=== PATIENT | female | born 1955 | race Caucasian/White ===

== ENCOUNTER 2017-07-24 19:01 | Emergency (ER) | payer MEDICARE, MEDICAID ==
[~2017-07-24] VITALS: Ht 144.8 cm; Wt 72.3 kg
[~2017-07-24 19:01] MED LIST: ALPR0.257 PO; CALC300T5 PO; CETI10TA32 PO; FAMO20TA7 PO; LURA40TA PO; PHEN50TA4 PO; PRAZ2CAP2 PO
[2017-07-24] MEDS ORDERED: ONDANSETRON ODT 4 MG PO ONE (19:30)
[2017-07-24] MEDS ORDERED: ONDANSETRON ODT 4 MG ONE (19:33)
[2017-07-24 19:44] LABS: ALANINE AMINOTRANSFERASE 26 U/L (12-78); ALBUMIN 3.7 g/dL (3.4-5.0); ANION GAP 6 mmol/L (5-15); CHLORIDE 107 mmol/L (98-107)
[2017-07-24 19:46] LABS: ALKALINE PHOSPHATASE 213 U/L (45-117); BILIRUBIN,TOTAL 0.2 mg/dL (0.2-1.0); TOTAL PROTEIN 7.7 g/dL (6.4-8.2)
[2017-07-24 19:55] LABS: BASOPHILS # (AUTO) 0.06 x10^3/uL (0-0.1); BASOPHILS % (AUTO) 0 % (0-1); EOSINOPHILS # (AUTO) 0.25 x10^3/uL (0-0.4); EOSINOPHILS % (AUTO) 2 % (1-7); LYMPHOCYTES # (AUTO) 3.93 x10^3/uL (1-3.4); LYMPHOCYTES % (AUTO) 30 % (22-44); MD NO; MEAN CORPUSCULAR HEMOGLOBIN 29.7 pg (27.0-34.8); MEAN CORPUSCULAR HGB CONC 33.6 g/dL (32.4-35.8); MEAN CORPUSCULAR VOLUME 88.3 fL (80-100); MEAN PLATELET VOLUME 8.2 fL (7.4-10.4); MONOCYTES # (AUTO) 1.07 x10^3/uL (0.2-0.8); MONOCYTES % (AUTO) 8 % (2-9); NEUTROPHILS # (AUTO) 7.83 x10^3/uL (1.8-6.8); NEUTROPHILS % (AUTO) 60 % (42-75); PLATELET COUNT 257 x10^3/uL (130-400); RED BLOOD COUNT 4.84 x10^6/uL (3.82-5.3); RED CELL DISTRIBUTION WIDTH 12.6 % (9.6-15.2)
[2017-07-24 21:43] VITALS: BP 146/78
== END 2017-07-24 22:16 | disposition home or self-care (01) ==
LOC: ED 20:54
DX: K29.01 Acute gastritis with bleeding (principal); G40.909 Epilepsy, unspecified, not intractable, without status epilepticus
CPT/HCPCS: 36415; 80053; 83690; 85025; 86677; 99284; Q0162

== ENCOUNTER → 2017-09-21 | Outpatient (CLI) | payer MEDICARE, MEDICAID ==
[~2017-09-21] MED LIST changes: +ALPR0.5T6 PO; +ATOR20TA PO; +AZIT500T2 PO; +CHOL10003 PO; +FAMO-79 PO; +HALO0.5T PO; +HALO1TAB PO; +LURA120T PO; +MECL25TA4 PO; +OLOP2.5D EACHEYE; +PRAZ5CAP2 PO; +TRAM100T13 PO; +TRAZ-137 PO; +[UNRECOGNIZED DRUG - OTHER] PO
== END | disposition home or self-care (01) ==
LOC: STAR 11:56
PROVIDERS: ATTEND Internal Medicine Gastroenterology
DX: Z12.11 Encounter for screening for malignant neoplasm of colon (principal); K92.0 Hematemesis; K21.9 Gastro-esophageal reflux disease without esophagitis; G40.909 Epilepsy, unspecified, not intractable, without status epilepticus; F41.9 Anxiety disorder, unspecified; I10 Essential (primary) hypertension; E78.00 Pure hypercholesterolemia, unspecified; K59.00 Constipation, unspecified
CPT/HCPCS: 93005

== ENCOUNTER 2017-09-26 08:50 | Day surgery (SDC) | payer MEDICARE, MEDICAID ==
[~2017-09-26] VITALS: Ht 144.8 cm; Wt 69.3 kg
[2017-09-26] MEDS ORDERED: LACTATED RINGERS 1,000 ML IV SCH (09:21)
[2017-09-26 09:48] VITALS: BP 128/77
[2017-09-26] MEDS ORDERED: PROPOFOL 10 MG/ML, 20ML ONE (10:38)
[2017-09-26] MEDS ORDERED: OXYcodone 5 MG/5 ML ORAL.SOL UDC PO PRN (11:30)
[2017-09-26] MEDS ORDERED: ONDANSETRON 2MG/ML, 2ML IV PRN (11:30)
[2017-09-26] MEDS ORDERED: FENTANYL PF 100 MCG/2ML IV PRN (11:30)
[2017-09-26] MEDS ORDERED: ONDANSETRON ODT 8 MG PO PRN (11:30)
[2017-09-26] MEDS ORDERED: ACETAMINOPHEN 325 MG TABLET PO PRN (11:30)
== END 2017-09-26 13:50 | disposition home or self-care (01) ==
LOC: OUT 08:50
PROVIDERS: ATTEND Internal Medicine Gastroenterology
DX: K29.50 Unspecified chronic gastritis without bleeding (principal); K21.0 Gastro-esophageal reflux disease with esophagitis; K64.4 Residual hemorrhoidal skin tags; K44.9 Diaphragmatic hernia without obstruction or gangrene; K22.10 Ulcer of esophagus without bleeding; F41.9 Anxiety disorder, unspecified; I10 Essential (primary) hypertension; E78.00 Pure hypercholesterolemia, unspecified; K63.89 Other specified diseases of intestine; Z88.8 Allergy status to other drugs, medicaments and biological substances; Z87.891 Personal history of nicotine dependence; Z79.899 Other long term (current) drug therapy; Z98.890 Other specified postprocedural states
CPT/HCPCS: 43239; 45378; 88305; J2704; J7120

== ENCOUNTER 2018-02-20 20:08 | Observation (INO) | payer MEDICARE, MEDICAID ==
[~2018-02-20] VITALS: Ht 144.8 cm; Wt 68.8 kg
[2018-02-20] MEDS ORDERED: ASPIRIN 81 MG TABLET CHEW PO ONE (20:30)
[2018-02-20 22:06] LABS: BASOPHILS # (AUTO) 0.06 x10^3/uL (0-0.1); BASOPHILS % (AUTO) 1 % (0-1); EOSINOPHILS # (AUTO) 0.19 x10^3/uL (0-0.4); EOSINOPHILS % (AUTO) 2 % (1-7); LYMPHOCYTES # (AUTO) 3.41 x10^3/uL (1-3.4); LYMPHOCYTES % (AUTO) 29 % (22-44); MD NO; MEAN CORPUSCULAR HEMOGLOBIN 30.5 pg (27.0-34.8); MEAN CORPUSCULAR HGB CONC 34.5 g/dL (32.4-35.8); MEAN CORPUSCULAR VOLUME 88.4 fL (80-100); MEAN PLATELET VOLUME 7.9 fL (7.4-10.4); MONOCYTES # (AUTO) 0.78 x10^3/uL (0.2-0.8); MONOCYTES % (AUTO) 7 % (2-9); NEUTROPHILS # (AUTO) 7.47 x10^3/uL (1.8-6.8); NEUTROPHILS % (AUTO) 63 % (42-75); PLATELET COUNT 271 x10^3/uL (130-400); RED BLOOD COUNT 4.73 x10^6/uL (3.82-5.3); RED CELL DISTRIBUTION WIDTH 12.9 % (9.6-15.2)
[2018-02-20 22:18] LABS: ALBUMIN 3.9 g/dL (3.4-5.0); ANION GAP 5 mmol/L (5-15); CHLORIDE 109 mmol/L (98-107); CREATININE 0.75 mg/dL (0.55-1.02)
[2018-02-20 22:22] LABS: TROPONIN I < 0.015 ng/mL (0.000-0.045)
--- NOTE | 2018-02-21 00:05 | NUR ---
WITNESSED PT. AMBULATE TO ROOM FROM LOBBY WITH STEADY GAIT ABOUT 5 MINUTES AGO.
[2018-02-21] MEDS ORDERED: ASPIRIN 81 MG TABLET CHEW ONE (00:11)
--- NOTE | 2018-02-21 00:17 | NUR ---
PT. MEDICATED PER APR. PT. REPORTS AT ABOUT 1800/1900 TONIGHT SHE STARTED HAVING "SHARP/STABBING" LEFT CHEST PAIN THAT RADIATES TO ARMPIT AREA. DENIES N/V/SOB. REPORTS CP IS BETTER NOW AT 6/10 BUT WAS 9/10 AT IT'S WORST. REPORTS HAS HAD A PRODUCTIVE COUGH X 1 WEEK. DENIES ANY CARDIAC HX. 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 PT. PLACED ON ALL MONITORS. FAMILY AT FOR SUPPORT. CALL LIGHT IN REACH. PAT RAMOS IN TO EVAL PT. AND DISCUSS POC. ALL SAFETY MEASURES OBSERVED.
[2018-02-21] MEDS ORDERED: SODIUM CHLORIDE 0.9% 1,000 ML IV SCH (00:59)
[2018-02-21] MEDS ORDERED: ACETAMINOPHEN 325 MG TABLET PO PRN (01:00)
[2018-02-21] MEDS ORDERED: ZOLPIDEM 5MG TABLET PO PRN (01:00)
[2018-02-21] MEDS ORDERED: ONDANSETRON 2MG/ML, 2ML IVPush PRN (01:00)
[2018-02-21] MEDS ORDERED: hydrALAzine 20 MG/ML, 1ML IVPush PRN (01:00)
[2018-02-21] MEDS ORDERED: morphine SULFATE 10 MG/ML, 1ML IVPush PRN (01:00)
[2018-02-21] MEDS ORDERED: ONDANSETRON ODT 4 MG PO PRN (01:00)
[2018-02-21] MEDS ORDERED: POLYETHYLENE GLYCOL 17 GM PACKET PO PRN (01:00)
--- NOTE | 2018-02-21 01:24 | NUR ---
PT. AWARE OF PLAN FOR ADMISSION. IV STARTED. VS UPDATED. PT. REMAINS IN NSR ON MONITOR. CALL LIGHT IN REACH, WARM BLANKET PROVIDED. PT. DENIES NEEDS. NO DISTRESS NOTED. PT. DENIES PAIN AT THIS TIME. ALL SAFETY MEASUERS OBSERVED.
[2018-02-21] MEDS ORDERED: PANT40TA5 PO (01:39)
[2018-02-21] MEDS ORDERED: TRAZ300T2 PO (01:39)
[2018-02-21] MEDS ORDERED: ACET-76 PO (01:39)
--- NOTE | 2018-02-21 01:44 | NUR ---
REPORT TO IRENE HAYS. FLOOR READY FOR PT. TRANSPORT.
[2018-02-21 02:11] VITALS: BP 130/77
[2018-02-21] MEDS ORDERED: ACETAMINOPHEN 500 MG TABLET PO PRN (04:30)
[2018-02-21 04:38] LABS: TROPONIN I < 0.015 ng/mL (0.000-0.045)
[2018-02-21] MEDS: PHENYTOIN 100 MG CAPSULE PO SCH ×2 (05:05→08:44)
[2018-02-21 07:38] LABS: TROPONIN I < 0.015 ng/mL (0.000-0.045)
[2018-02-21 07:59] VITALS: BP 136/69
[2018-02-21] MEDS ORDERED: PANTOPROZOLE 40MG TABLET PO SCH (08:00)
[2018-02-21] MEDS ORDERED: REGADENOSON 0.4 MG/5 ML SYRINGE ONE (08:43)
[2018-02-21] MEDS ORDERED: CETIRIZINE 10 MG TABLET PO SCH (09:00)
[2018-02-21] MEDS ORDERED: FAMOTIDINE 20 MG TABLET PO SCH (09:00)
[2018-02-21] MEDS ORDERED: CHOLECALCIFEROL 1,000 UNIT TABLET PO SCH (09:00)
[2018-02-21] MEDS ORDERED: HALOPERIDOL 0.5 MG TABLET PO SCH ×2 (09:00→21:00)
[2018-02-21] MEDS ORDERED: TEMPLATE NON-FORMULARY MED. (Olopatadine Hcl (Pataday) 1 DROP) EACHEYE SCH (09:00)
[2018-02-21] MEDS ORDERED: LURASIDONE 20 MG TABLET PO SCH (09:00)
[2018-02-21 15:20] VITALS: BP 121/74
[2018-02-21] MEDS ORDERED: ATORVASTATIN 20 MG TABLET PO SCH (21:00)
[2018-02-21] MEDS ORDERED: TRAZODONE 150MG TABLET PO SCH (21:00)
[2018-02-21] MEDS ORDERED: PRAZOSIN 5 MG CAPSULE PO SCH (21:00)
== END 2018-02-21 17:22 | disposition home or self-care (01) ==
LOC: ED 02-21 00:55 → SUATTDRO 02-21 00:59 → EDIP 02-21 00:59 → 5SO 02-21 01:50 → DCLOUNGE 02-21 16:39
PROVIDERS: ADMIT Hospitalist; ATTEND Hospitalist
DX: R07.89 Other chest pain (principal); F25.9 Schizoaffective disorder, unspecified; G40.909 Epilepsy, unspecified, not intractable, without status epilepticus; F99 Mental disorder, not otherwise specified; Z82.49 Family history of ischemic heart disease and other diseases of the circulatory system; Z88.8 Allergy status to other drugs, medicaments and biological substances
CPT/HCPCS: 36415; 71046; 78452; 80048; 82040; 83880; 84484; 85025; 93005; 93017; 99284; A9502; C9898; G0378; J2785; J7030